=== PATIENT | female | born 1940 | race Caucasian/White ===

== ENCOUNTER 2018-07-13 09:43 | Inpatient (IN) | payer MEDICARE ==
[2018-07-13] MEDS ORDERED: SODIUM CHLORIDE 0.9% 1,000 ML IV STA (09:57)
--- NOTE | 2018-07-13 10:00 | ED ---
General Adult HPI - General Chief complaint: Nausea/Vomiting/Diarrhea Stated complaint: Body aches all over Time Seen by Provider: 07/13/18 09:50 Source: patient, RN notes reviewed Mode of arrival: ambulatory Limitations: no limitations - History of Present Illness Initial comments: 78-year-old female presents to the emergency department with a chief complaint of abdominal pain. She states she's had this pain since Friday. She states that her abdomen just feels very distended. She states if she eats she tends to have increased pain. She states that she had her typical bowel movement yesterday but she feels like she could go again. She denies any changes in urination but states she has not been drinking enough water. She denies any fever chills. She denies any vomiting. She states mostly her pain is in the upper abdomen. She denies any chest pain and shortness of breath. She states that she is feeling just weak in general. She was concerned due to the continued pain so she thought that she should be seen. Patient denies any recent fever, chills, shortness of breath, chest pain, back pain, nausea vomiting, numbness or tingling, dysuria or hematuria, diarrhea, headaches or visual changes, or any other current symptoms. - Related Data Home Medications Medication Instructions Recorded Confirmed Alendronate Sodium 70 mg PO WE 07/13/18 07/13/18 Artificial Tears-Hypromellose 1 - 2 drops BOTH EYES QID PRN 07/13/18 07/13/18 [Artificial Tear Drops] Atenolol [Tenormin] 50 mg PO HS 07/13/18 07/13/18 Bifidobacterium Infantis [Align] 4 mg PO DAILY 07/13/18 07/13/18 Cromolyn Sodium 1 drops BOTH EYES Q48H 07/13/18 07/13/18 Cyclobenzaprine [Flexeril] 10 mg PO DAILY PRN 07/13/18 07/13/18 Fish Oil/Dha/Epa [Fish Oil 1,200 1 cap PO DAILY 07/13/18 07/13/18 mg Fish Oil] Glucosamine Sulfate 500 mg PO DAILY 07/13/18 07/13/18 Olopatadine HCl [Patanol] 1 - 2 drops BOTH EYES Q48H 07/13/18 07/13/18 Triamcinolone Acetonide [Nasacort] 1 spray EA NOSTRIL DAILY 07/13/18 07/13/18 Vitamin B Complex 1 cap PO DAILY 07/13/18 07/13/18 Allergies Allergy/AdvReac Type Severity Reaction Status Date / Time latex Allergy Rash/Hives Verified 07/13/18 14:18 Review of Systems ROS Statement: Those systems with pertinent positive or pertinent negative responses have been documented in the HPI. ROS Other: All systems not noted in ROS Statement are negative. Past Medical History Additional Past Medical History / Comment(s): Lymphocytic Colitis History of Any Multi-Drug Resistant Organisms: None Reported Past Surgical History: Appendectomy, Joint Replacement, Orthopedic Surgery, Tonsillectomy Additional Past Surgical History / Comment(s): Face Lift, Caratact surgery Past Psychological History: No Psychological Hx Reported Smoking Status: Former smoker Past Alcohol Use History: Daily Past Drug Use History: None Reported General Exam - General Exam Comments Initial Comments: General: The patient is awake and alert, in no distress, and does not appear acutely ill. Eye: Pupils are equal, round and reactive to light, extra-ocular movements are intact; there is normal conjunctiva bilaterally. No signs of icterus. Ears, nose, mouth and throat: There are moist mucous membranes. Neck: The neck is supple, there is no tenderness. Cardiovascular: There is a regular rate and rhythm. No murmur, rub or gallop is appreciated. Respiratory: Lungs are clear to auscultation, respirations are non-labored, breath sounds are equal. No wheezes, stridor, rales, or rhonchi. Gastrointestinal: Soft, distended, mild tenderness along the right upper and left upper quadrants of the abdomen without masses or organomegaly noted. There is no rebound or guarding present. No CVA tenderness. Bowel sounds are unremarkable. Back: There is no tenderness to palpation in the midline. There is no obvious deformity. No rashes noted. Musculoskeletal: Normal ROM, no tenderness, There is no pedal edema. There is no calf tenderness or swelling. Sensation intact. Pulses equal bilaterally 2+. Neurological: CN II-XII intact, There are no obvious motor or sensory deficits. Coordination appears grossly intact. Speech is normal. Skin: Skin is warm and dry and no rashes or lesions are noted. Psychiatric: Cooperative, appropriate mood & affect, normal judgment. Limitations: no limitations Course Vital Signs 07/13/18 07/13/18 07/13/18 09:44 12:49 14:00 Temperature 98.1 F 98.7 F Pulse Rate 71 84 75 Respiratory 18 28 H 18 Rate Blood Pressure 115/70 185/88 O2 Sat by Pulse 98 94 L 96 Oximetry 07/13/18 15:00 Temperature 97.9 F Pulse Rate 78 Respiratory 18 Rate Blood Pressure 128/74 O2 Sat by Pulse 97 Oximetry - Reevaluation(s) Reevaluation #1: 07/13/18 when patient was reevaluated for computed tomography scan results she was found to be the Neck and hypoxic. She was placed on 2 L and a chest x-ray and cardiac enzymes were added. At that time there is concern for possible acute CHF. Possible etiology due to fluid overload versus cardiac component. Cardiology will be consulted. EKG Findings - EKG Comments: EKG Findings:: normal sinus rhythm 80 bpm, normal axis, no atopy, no S-T depressions or elevations, Medical Decision Making - Medical Decision Making 78-year-old female presents for abdominal pain and distention. This time lab work was reviewed that does show what appears to be a UTI with CAT scan confirming acute pyelonephritis. Patient did develop shortness of breath while in the emergency department after receiving fluids and was found to have elevated BMP as well possible acute CHF on x-ray. At this time we'll admit the patient. We will continue nitro paste and a low-dose of Lasix we will consult cardiology per Dr. Bennett's request. We will continue antibiotics. Acute pyelonephritis. The patient is comfortable in the room at this time with nasal cannula oxygen. All questions have been answered. - Lab Data Result diagrams: 07/13/18 10:15 07/13/18 10:15 Lab Results 07/13/18 07/13/18 07/13/18 Range/Units 10:15 10:15 10:15 WBC 8.6 (3.8-10.6) k/uL RBC 4.68 (3.80-5.40) m/uL Hgb 15.5 (11.4-16.0) gm/dL Hct 46.9 H (34.0-46.0) % MCV 100.4 H (80.0-100.0) fL MCH 33.1 (25.0-35.0) pg MCHC 32.9 (31.0-37.0) g/dL RDW 12.8 (11.5-15.5) % Plt Count 225 (150-450) k/uL Neutrophils % 88 % Lymphocytes % 5 % Monocytes % 5 % Eosinophils % 1 % Basophils % 0 % Neutrophils # 7.6 (1.3-7.7) k/uL Lymphocytes # 0.5 L (1.0-4.8) k/uL Monocytes # 0.4 (0-1.0) k/uL Eosinophils # 0.1 (0-0.7) k/uL Basophils # 0.0 (0-0.2) k/uL Sodium 133 L (137-145) mmol/L Potassium 4.4 (3.5-5.1) mmol/L Chloride 97 L (98-107) mmol/L Carbon Dioxide 26 (22-30) mmol/L Anion Gap 10 mmol/L BUN 20 H (7-17) mg/dL Creatinine 0.93 (0.52-1.04) mg/dL Est GFR (CKD-EPI)AfAm 68 (>60 ml/min/1.73 sqM) Est GFR (CKD-EPI)NonAf 59 (>60 ml/min/1.73 sqM) Glucose 106 H (74-99) mg/dL Plasma Lactic Acid Nasim (0.7-2.0) mmol/L Calcium 9.0 (8.4-10.2) mg/dL Total Bilirubin 1.1 (0.2-1.3) mg/dL AST 25 (14-36) U/L ALT 27 (9-52) U/L Alkaline Phosphatase 72 (38-126) U/L Total Creatine Kinase (30-135) U/L CK-MB (CK-2) (0.0-2.4) ng/mL CK-MB (CK-2) Rel Index Troponin I (0.000-0.034) ng/mL NT-Pro-B Natriuret Pep pg/mL Total Protein 6.4 (6.3-8.2) g/dL Albumin 3.5 (3.5-5.0) g/dL Amylase 61 (30-110) U/L Lipase 40 (23-300) U/L Urine Color Yellow Urine Appearance Cloudy H (Clear) Urine pH 6.0 (5.0-8.0) Ur Specific [place] 1.013 (1.001-1.035) Urine Protein 1+ H (Negative) Urine Glucose (UA) Negative (Negative) Urine Ketones 2+ H (Negative) Urine Blood Trace H (Negative) Urine Nitrite Positive H (Negative) Urine Bilirubin Negative (Negative) Urine Urobilinogen <2.0 (<2.0) mg/dL Ur Leukocyte Esterase Large H (Negative) Urine RBC 3 (0-5) /hpf Urine WBC 126 H (0-5) /hpf Urine WBC Clumps Few H (None) /hpf Ur Squamous Epith Cells 2 (0-4) /hpf Urine Bacteria Many H (None) /hpf Urine Mucus Rare H (None) /hpf Urine Yeast (Budding) Occasional H (None) /hpf 07/13/18 07/13/18 07/13/18 Range/Units 10:15 10:15 10:15 WBC (3.8-10.6) k/uL RBC (3.80-5.40) m/uL Hgb (11.4-16.0) gm/dL Hct (34.0-46.0) % MCV (80.0-100.0) fL MCH (25.0-35.0) pg MCHC (31.0-37.0) g/dL RDW (11.5-15.5) % Plt Count (150-450) k/uL Neutrophils % % Lymphocytes % % Monocytes % % Eosinophils % % Basophils % % Neutrophils # (1.3-7.7) k/uL Lymphocytes # (1.0-4.8) k/uL Monocytes # (0-1.0) k/uL Eosinophils # (0-0.7) k/uL Basophils # (0-0.2) k/uL Sodium (137-145) mmol/L Potassium (3.5-5.1) mmol/L Chloride (98-107) mmol/L Carbon Dioxide (22-30) mmol/L Anion Gap mmol/L BUN (7-17) mg/dL Creatinine (0.52-1.04) mg/dL Est GFR (CKD-EPI)AfAm (>60 ml/min/1.73 sqM) Est GFR (CKD-EPI)NonAf (>60 ml/min/1.73 sqM) Glucose (74-99) mg/dL Plasma Lactic Acid Nasim 1.2 (0.7-2.0) mmol/L Calcium (8.4-10.2) mg/dL Total Bilirubin (0.2-1.3) mg/dL AST (14-36) U/L ALT (9-52) U/L Alkaline Phosphatase (38-126) U/L Total Creatine Kinase 34 (30-135) U/L CK-MB (CK-2) 0.4 (0.0-2.4) ng/mL CK-MB (CK-2) Rel Index 1.2 Troponin I <0.012 (0.000-0.034) ng/mL NT-Pro-B Natriuret Pep 1830 pg/mL Total Protein (6.3-8.2) g/dL Albumin (3.5-5.0) g/dL Amylase (30-110) U/L Lipase (23-300) U/L Urine Color Urine Appearance (Clear) Urine pH (5.0-8.0) Ur Specific [place] (1.001-1.035) Urine Protein (Negative) Urine Glucose (UA) (Negative) Urine Ketones (Negative) Urine Blood (Negative) Urine Nitrite (Negative) Urine Bilirubin (Negative) Urine Urobilinogen (<2.0) mg/dL Ur Leukocyte Esterase (Negative) Urine RBC (0-5) /hpf Urine WBC (0-5) /hpf Urine WBC Clumps (None) /hpf Ur Squamous Epith Cells (0-4) /hpf Urine Bacteria (None) /hpf Urine Mucus (None) /hpf Urine Yeast (Budding) (None) /hpf - Radiology Data Radiology results: report reviewed, image reviewed Disposition Clinical Impression: Acute pyelonephritis, CHF (congestive heart failure) Disposition: ADMITTED IP TO THIS [facility] Condition: Stable Decision Date: 07/13/18 Decision Time: 15:17
[2018-07-13 10:35] LABS: Basophils % (A) 0 %; Eosinophils # (A) 0.1 k/uL (0-0.7); Eosinophils % (A) 1 %; HCT 46.9 % (34.0-46.0); HGB 15.5 gm/dL (11.4-16.0); Lymphocytes # (A) 0.5 k/uL (1.0-4.8); Lymphocytes % (A) 5 %; MCH 33.1 pg (25.0-35.0); MCHC 32.9 g/dL (31.0-37.0); MCV 100.4 fL (80.0-100.0); Mean Platelet Volume 6.8; Monocytes # (A) 0.4 k/uL (0-1.0); Monocytes % (A) 5 %; Neutrophils # (A) 7.6 k/uL (1.3-7.7); Neutrophils % (A) 88 %; Platelet Count 225 k/uL (150-450); RBC 4.68 m/uL (3.80-5.40); RDW 12.8 % (11.5-15.5); WBC 8.6 k/uL (3.8-10.6)
[2018-07-13 10:47] LABS: Albumin 3.5 g/dL (3.5-5.0); Potassium 4.4 mmol/L (3.5-5.1); Total Bilirubin 1.1 mg/dL (0.2-1.3); Total Protein 6.4 g/dL (6.3-8.2)
[2018-07-13 10:51] LABS: Appearance,Urine Cloudy (Clear); Bacteria,Urine Many /hpf; Bilirubin,Urine Negative (Negative); Blood,Urine Trace (Negative); Budding Yeast,Urine Occasional /hpf; Color,Urine Yellow; Glucose,Urine (UA) Negative (Negative); Ketones,Urine 2+ (Negative); Leukocyte Esterase,Urine Large (Negative); Mucus,Urine Rare /hpf; Nitrite,Urine Positive (Negative); Protein,Urine 1+ (Negative); RBC,Urine 3 /hpf (0-5); Specific Gravity,Urine 1.013 (1.001-1.035); Squamous Epithelial Cell,Urine 2 /hpf (0-4); Urobilinogen,Urine <2.0 mg/dL (<2.0); WBC,Urine 126 /hpf (0-5)
[2018-07-13] MEDS ORDERED: cefTRIAXone IN SWFI 1,000 MG/10 ML SYRINGE IVP STA (11:09)
--- NOTE | 2018-07-13 12:13 | CT ---
EXAMINATION TYPE: CT abdomen pelvis w con DATE OF EXAM: 07/13/2018 COMPARISON: NONE HISTORY: 78-year-old female Pelvic pain with nausea TECHNIQUE: Contiguous axial scanning of the abdomen and pelvis following administration of 100 ml Iso eddi 300 IV contrast. Delayed images through the kidneys and coronal/sagittal reconstructions perform ed. CT DLP: 435.4 mGycm Automated exposure control for dose reduction was used. FINDINGS: Heart normal size without pericardial effusion. Pleural parenchymal scarring at the peripheral left b ase. Ectatic lower descending thoracic aorta 2.8 cm. Some focal fat along the anterior falciform ligament. Liver enlarged measuring 21.4 cm. Otherwise, no focal liver lesion. No biliary ductal dilatation. Portal venous system is patent. Right adrenal gland, gallbladder, and pancreas show no gross abnormality. On the left, there is a punctate nonobstructive 2 mm calculus as well as a 1.8 cm lateral cyst. Multiple calcified granulomas in the spleen. 1.4 cm nodularity left adrenal gland, nonspecific, statistically represents a benign adrenal adenoma. Nonobstructive 4 mm right lower pole renal calculus. Some vascular calcifications at the right renal hilum, and a subcentimeter hypodensity medial upper pole too small for accurate CT characterization, likely cyst. However, there is urothelial thickening along the right renal collecting system, asymmetric right-mary ed perinephric fat stranding, and striated nephrograms throughout the right kidney. No dilated small bowel, free fluid, or free air. No mesenteric or retroperitoneal lymphadenopathy. Sigmoid diverticulosis without pericolonic inflammatory change. Mild circumferential bladder wall thickening. Uterus and ovaries are visualized. Multiple pelvic phle boliths. No abnormal fluid collection in the pelvis or pelvic lymphadenopathy. Bones: Advanced degenerative changes throughout the patient's visualized spine. IMPRESSION: 1. CT FINDINGS HIGHLY SUGGESTIVE OF RIGHT-SIDED PYELONEPHRITIS. 2. NONOBSTRUCTIVE RENAL CALCULUS ON EITHER SIDE MEASURING UP TO 4 MM. 3. SIGMOID DIVERTICULOSIS AND HEPATOMEGALY (21.4 CM). 4. ADVANCED DEGENERATIVE CHANGES THROUGHOUT THE VISUALIZED SPINE.
[2018-07-13] MEDS ORDERED: cefTRIAXone 2,000 MG in SODIUM CHLORIDE 0.9% 100 ML IVPB STA (12:23)
[2018-07-13] MEDS ORDERED: cefTRIAXone IN SWFI 2,000 MG/20 ML SYRINGE IVP STA (12:26)
--- NOTE | 2018-07-13 13:26 | XR ---
EXAMINATION TYPE: XR chest 2V DATE OF EXAM: 07/13/2018 COMPARISON: NONE HISTORY: Cough TECHNIQUE: Frontal and lateral views of the chest are obtained. FINDINGS: Heart size is normal. There is pulmonary interstitial edema. This lump blunting of costoph renic angles. Bony thorax is intact. Thoracic aorta is atheromatous. IMPRESSION: Pulmonary interstitial edema could relate to acute heart failure.
[2018-07-13] MEDS ORDERED: FUROSEMIDE 10 MG/ML 4 ML VIAL IV STA (13:36)
[2018-07-13 14:22] LABS: Creatine Kinase 34 U/L (30-135)
[2018-07-13 14:35] LABS: Creatine Kinase MB 0.4 ng/mL (0.0-2.4); Troponin I <0.012 ng/mL (0.000-0.034)
[2018-07-13] MEDS ORDERED: NITROGLYCERIN OINT 1 INCH/GM PACKET TOPICAL STA (14:56)
[2018-07-13] MEDS ORDERED: ASPIRIN 325 MG TAB PO STA (15:19)
[2018-07-13] MEDS ORDERED: CYCLOBENZAPRINE 10 MG TAB PO PRN (15:21)
[2018-07-13] MEDS ORDERED: ARTIFICIAL TEARS-HYPROMELLOSE DROPS 15 ML BTL BOTH EYES PRN (15:21)
[2018-07-13] MEDS ORDERED: CROMOLYN SODIUM BOTH EYES SCH (15:30)
[2018-07-13 17:50] VITALS: BMI 26.4
[2018-07-13] MEDS: SODIUM CHLORIDE 0.9% 1,000 ML IV SCH (17:57)
[2018-07-13] MEDS: NITROGLYCERIN OINT 1 INCH/GM PACKET TOPICAL SCH ×2 (17:58→20:33)
[2018-07-13] MEDS: ATENOLOL 50 MG TAB PO SCH (20:34)
[2018-07-13 22:36] LABS: Creatine Kinase MB 0.7 ng/mL (0.0-2.4); Troponin I 0.017 ng/mL (0.000-0.034)
[2018-07-14 06:25] LABS: Creatine Kinase MB 0.8 ng/mL (0.0-2.4); Troponin I 0.014 ng/mL (0.000-0.034)
[2018-07-14] MEDS: FUROSEMIDE 10 MG/ML 4 ML VIAL IV SCH ×2 (06:36→18:57)
[2018-07-14] MEDS: NITROGLYCERIN OINT 1 INCH/GM PACKET TOPICAL SCH ×4 (08:54→20:09)
[2018-07-14] MEDS: FLUTICASONE 50MCG/SPRAY NASAL 16GM EA NOSTRIL SCH (08:54)
[2018-07-14] MEDS: ASPIRIN 325 MG TAB PO SCH (08:54)
[2018-07-14] MEDS: LACTOBACILLUS ACIDOPH & BULGAR 1 EACH PACKET PO SCH (08:55)
[2018-07-14] MEDS ORDERED: KETOTIFEN 0.025% OPHTH DROPS 5 ML BTL BOTH EYES SCH (09:00)
[2018-07-14] MEDS ORDERED: NON-FORMULARY DRUG (Vitamin B Complex [Vitamin B Complex] 1 CAP) PO SCH (09:00)
[2018-07-14] MEDS ORDERED: NON-FORMULARY DRUG (Glucosamine Sulfate 500 MG) PO SCH (09:00)
[2018-07-14] MEDS ORDERED: NON-FORMULARY DRUG (Fish Oil/Dha/Epa [Fish Oil 1,200 Mg Fish Oil] 1 CAP) PO SCH (09:00)
--- NOTE | 2018-07-14 11:47 | ECHOF ---
Referral Reason:CHF MEASUREMENTS -------- HEIGHT: 154.9 cm WEIGHT: 63.0 kg BP: 130/51 RVIDd: 2.7 cm (< 3.3) IVSd: 0.9 cm (0.6 - 1.1) LVIDd: 3.8 cm (3.9 - 5.3) LVPWd: 1.0 cm (0.6 - 1.1) IVSs: 1.2 cm LVIDs: 2.8 cm LVPWs: 1.2 cm LA Diam: 3.1 cm (2.7 - 3.8) LAESV Index (A-L): 33.82 ml/m Ao Diam: 2.9 cm (2.0 - 3.7) AV Cusp: 1.9 cm (1.5 - 2.6) MV EXCURSION: 15.792 mm (> 18.000) MV EF SLOPE: 93 mm/s (70 - 150) EPSS: 0.3 cm MV E Bull: 0.91 m/s MV DecT: 180 ms MV A Bull: 0.57 m/s MV E/A Ratio: 1.59 AR PHT: 3782 ms RAP: 5.00 mmHg RVSP: 27.35 mmHg FINDINGS -------- Resting bradycardia (HR<60bpm). This was a technically good study. The left ventricular size is normal. Left ventricular wall thickness is normal. Overall left vent ricular systolic function is low-normal with, an EF between 50 - 55 %. The right ventricle is normal in size. LA is moderately dilated 34-39 ml/m2 The right atrium is normal in size. There is mild aortic valve sclerosis. Trace to mild aortic regurgitation. The mitral valve leaflets are mildly thickened. Mild mitral annular calcification present. There is trace mitral regurgitation. Mild tricuspid regurgitation present. There is mild pulmonary hypertension. The right ventricular systolic pressure, as measured by Doppler, is 27.35mmHg. The pulmonic valve was not well visualized. The aortic root size is normal. Normal inferior vena cava with normal inspiratory collapse consistent with estimated right atrial pre ssure of 5 mmHg. There is no pericardial effusion. CONCLUSIONS -------- 1. Resting bradycardia (HR<60bpm). 2. This was a technically good study. 3. The left ventricular size is normal. 4. Left ventricular wall thickness is normal. 5. Overall left ventricular systolic function is low-normal with, an EF between 50 - 55 %. 6. The right ventricle is normal in size. 7. LA is moderately dilated 34-39 ml/m2 8. The right atrium is normal in size. 9. There is mild aortic valve sclerosis. 10. Trace to mild aortic regurgitation. 11. The mitral valve leaflets are mildly thickened. 12. Mild mitral annular calcification present. 13. There is trace mitral regurgitation. 14. Mild tricuspid regurgitation present. 15. There is mild pulmonary hypertension. 16. The right ventricular systolic pressure, as measured by Doppler, is 27.35mmHg. 17. The pulmonic valve was not well visualized. 18. The aortic root size is normal. 19. Normal inferior vena cava with normal inspiratory collapse consistent with estimated right atrial pressure of 5 mmHg. 20. There is no pericardial effusion. ELECTRICAL TECH/PROJECT MANAGER: Tanika Zuniga RDCS
[2018-07-14] MEDS ORDERED: cefTRIAXone IN SWFI 1,000 MG/10 ML SYRINGE IVP SCH (13:00)
[2018-07-14] MEDS: SODIUM CHLORIDE 0.9% 1,000 ML IV SCH (16:44)
--- NOTE | 2018-07-14 18:39 | HP ---
HISTORY AND PHYSICAL CHIEF COMPLAINT: Abdominal pain and bloating. HISTORY OF PRESENT ILLNESS: This lady presented to the emergency room with a complaint of abdominal pain and bloating. She was diagnosed as having urinary tract infection and possible pyelonephritis. Apparently an x-ray did suggest that she had CHF and her chest x-ray is suggestive of the same. She has had no chest pain, history of heart disease, orthopnea, PND, fever, chills, cough, hemoptysis, etc. She has otherwise been fairly healthy. At home, she has been on: 1. Fosamax 70 mg once a week. 2. Atenolol 50 mg at bedtime. 3. Cromolyn sodium drops in both eyes. 4. Flexeril 10. 5. Patanol drops. 6. Nasacort. She had no angina, diabetes, etc. REVIEW OF SYSTEMS: She has had no neurologic problems, hemoptysis, hypertension, palpitations, orthopnea, PND, syncope, abdominal pain, nausea, vomiting, hematemesis, melena, hematochezia, jaundice, hepatitis, cirrhosis, hematuria, renal failure, diabetes, etc. PAST MEDICAL HISTORY: She is ALLERGIC TO LATEX. Medications have already been mentioned. FAMILY HISTORY, PERSONAL AND SOCIAL HISTORY: Noncontributory and she does not smoke. Surgically, she has had cataracts and a procedure on her right knee. LABORATORY STUDIES: Demonstrated normal CBC and electrolytes. Blood sugar was 106. Urine was positive for bacteria and white cells. BNP was 1830. Troponin was normal. PHYSICAL EXAMINATION: Blood pressure 130/72 with a pulse of 57, respirations 18 and she is afebrile. In general, she appeared to be well-developed, well-nourished, no acute distress. Skin color is normal. Skin is warm and dry. Lymph nodes are not enlarged. Head, ears, eyes, nose, mouth, and throat were normal. Neck veins were not distended. Thyroid is not enlarged. Chest is clear. Cardiac demonstrates normal sinus rhythm with no murmurs or extra sounds. The abdomen is soft and nontender and there is no visceromegaly or mass. Bowel sounds are present. Extremities are normal and neurologically, she is intact. She is admitted to the hospital with diagnoses: 1. Urinary tract infection. 2. Possible congestive heart failure. PLAN: 1. Bed rest. 2. IV fluids. 3. IV antibiotics. 4. Echocardiogram. MMODL / IJN: [id number] /
--- NOTE | 2018-07-14 18:39 | PN ---
PROGRESS NOTE DATE OF SERVICE: 07/14/2018 CHIEF COMPLAINT: Urinary tract infection and possible CHF. HISTORY OF PRESENT ILLNESS: This lady is feeling well. She has had no chest pain, shortness of breath, etc. She has had no fever or chills. PHYSICAL EXAMINATION: HEENT is normal. Chest is clear. Cardiac exam is normal. Abdomen is soft, nontender. IMPRESSION: 1. Urinary tract infection. 2. ? Congestive heart failure. PLAN: 1. Echocardiogram. 2. Continue antibiotics. MMODL / IJN: [id number] /
[2018-07-14] MEDS ORDERED: IBUPROFEN 400 MG TAB PO PRN (19:24)
[2018-07-14] MEDS: IOPAMIDOL-300 CONTRAST 30 ML VIAL (ORAL USE) PO PRN ×2 (20:15→21:16)
[2018-07-14] MEDS ORDERED: MELATONIN 5 MG TABLET PO SCH (21:00)
[2018-07-14 21:04] LABS: Potassium 3.5 mmol/L (3.5-5.1)
[2018-07-14] MEDS: ATENOLOL 50 MG TAB PO SCH (22:13)
--- NOTE | 2018-07-14 22:26 | CT ---
EXAMINATION TYPE: CT abdomen pelvis w con DATE OF EXAM: 07/14/2018 COMPARISON: Yesterday HISTORY: Abdominal pain and distention CT DLP: 592.2 mGycm Automated exposure control for dose reduction was used. TECHNIQUE: Helical acquisition of images was performed from the lung bases through the pelvis. CONTRAST: Performed with Oral Contrast and with IV Contrast, patient injected with 100 mL of Isovue 300. FINDINGS: There is some mild linear density at the posterior lung bases consistent with scarring and subsegment al atelectasis. Heart size is normal. There are multiple calcified splenic granulomata. There is no d iscrete liver mass. Bile ducts are not dilated. Gallbladder appears normal. There is no evidence of a pancreatic mass. There are pancreatic calcifications consistent with old inflammatory disease. There is 5 mm calculus in the anterior left kidney. There is 5 mm calculus lower pole right kidney. There is no adrenal mass. There are small renal cortical cysts that measure up to 2 cm. There is no hydrone phrosis. There is slight decreased cortical contrast opacification of the right kidney compared to th e left. There is no retroperitoneal adenopathy. There are numerous diverticula in the sigmoid colon. Bladder distends smoothly. There is no intestinal wall thickening. There are no dilated loops. Append ix is not seen. There is no sign of appendicitis. There are spondylotic changes in the lumbar spine w ith disc space narrowing and vacuum disc. There is no compression fracture. There is no evidence of pneumoperitoneum. There is no ascites. IMPRESSION: THERE IS DECREASED CORTICAL ENHANCEMENT OF THE RIGHT KIDNEY COMPARED TO THE LEFT AND COULD RELATE TO DIFFUSE PYELONEPHRITIS SIMILAR TO EXAM YESTERDAY. RENAL ISCHEMIA IS ALSO POSSIBLE. THERE ARE MULTIPLE NONOBSTRUCTING RENAL CALCULI. ATHEROSCLEROTIC VASCULAR DISEASE. EXTENSIVE SIGMOID DIVERTICULOSIS WIT HOUT DIVERTICULITIS. THERE IS OVERALL NO SIGNIFICANT CHANGE COMPARED TO YESTERDAY. Fibrotic changes at the lung bases unchanged from yesterday.
[2018-07-15] MEDS: FUROSEMIDE 10 MG/ML 4 ML VIAL IV SCH (06:06)
[2018-07-15] MEDS: ASPIRIN 325 MG TAB PO SCH (08:23)
[2018-07-15] MEDS: FLUTICASONE 50MCG/SPRAY NASAL 16GM EA NOSTRIL SCH (08:24)
[2018-07-15] MEDS: NITROGLYCERIN OINT 1 INCH/GM PACKET TOPICAL SCH (08:30)
[2018-07-15] MEDS: LACTOBACILLUS ACIDOPH & BULGAR 1 EACH PACKET PO SCH (08:30)
[2018-07-15 08:41] VITALS: BP 128/74; PULSE 56; RESP 18; TEMP 98
--- NOTE | 2018-07-15 15:15 | CDI ---
Last Revision, October 2017 Documentation Clarification Form Date: 07/15/2018 3:05:00 PM From: Belle LealNorthANDREA, CCDS Admit Date: 07/13/2018 3:46:00 PM Patient Name: Jackie Brandt Visit Number: [id number] Discharge Date: 07/15/2018 ATTENTION: The Clinical Documentation Specialists (CDI) and [facility] Coding Staff appreciate your assistance in clarifying documentation. Please respond to the clarification below the line at the bottom and electronically sign. The CDI & [facility] Coding staff will review the response and follow-up if needed. Please note: Queries are made part of the Legal Health Record. If you have any questions, please contact the author of this message via ITS. Gera Williamson MD: Per the H/P & progress notes, the patient is diagnosed with possible CHF, nos. History/Risk Factors: Former smoker. Clinical Indicators: Presented with nausea, vomiting, diarrhea, body aches & abdominal pain. Diagnosed with pyelonephritis. VS: P 71-84, R 18-28^, BP 115/70-185/88^, PO 98 ra - 94 2Lnc BNP: 1830 Echocardiogram Results: EF 50-55%, systolic low normal. Mild aortic valve sclerosis, Trace-mild AR, Trace MR, Mild TR, mild pulm hypertension. Chest X Ray: Pulmonary interstitial edema could relate to acute heart failure. Treatment: IV fluid bolus, IV Rocephin, IV Lasix, Nitropaste, telemetry. In your professional opinion, can you please clarify the acuity and type of CHF if known? Systolic Heart Failure: o Acute o Chronic o Acute on Chronic Diastolic Heart Failure: o Acute o Chronic o Acute on Chronic Systolic & Diastolic Heart Failure: o Acute o Chronic o Acute on Chronic Heart Failure Unable to Determine Other, please specify MTDD
[2018-07-15] MEDS ORDERED: NON-FORMULARY DRUG (Alendronate Sodium [Alendronate Sodium] 70 MG) PO SCH (15:21)
[2018-07-15] MEDS ORDERED: AMOXICILLIN 250 MG CAP PO SCH (16:00)
--- NOTE | 2018-07-15 17:41 | DS ---
DISCHARGE SUMMARY CHIEF COMPLAINT: Urinary tract infection and possible CHF. HISTORY OF PRESENT ILLNESS AND PHYSICAL EXAM: The details of this lady's history and physical can be found in the initial workup. LABORATORY STUDIES: While she was in a hospital she had laboratory studies, details which can be found in the laboratory section of her chart. COURSE IN HOSPITAL: After admission she was placed in bedrest, started on intravenous fluids and placed on antibiotics. She had no other problems. Studies were unremarkable. She is doing well. It is felt that she will be discharged on the and she will go home on Amoxil 250 t.i.d. for the urinary tract infection and a low dose of Lasix. She will follow up in a few days. FINAL DIAGNOSES: 1. Possible congestive heart failure. 2. Urinary tract infection. OPERATIONS: None. CONSULTATION: None. She is improved. YOLANDA / ALL: [id number] /
[2018-07-16] MEDS ORDERED: FUROSEMIDE 20 MG TAB PO SCH (09:00)
--- NOTE | 2018-07-22 07:44 | CDI ---
Last Revision, October 2017 Documentation Clarification Form Date: 07/15/2018 3:05:00 PM From: Belle LealNorthANDREA reyes, CCDS Admit Date: 07/13/2018 3:46:00 PM Patient Name: Jackie Brandt Visit Number: [id number] Discharge Date: 07/15/2018 ATTENTION: The Clinical Documentation Specialists (CDI) and [facility] Coding Staff appreciate your assistance in clarifying documentation. Please respond to the clarification below the line at the bottom and electronically sign. The CDI & [facility] Coding staff will review the response and follow-up if needed. Please note: Queries are made part of the Legal Health Record. If you have any questions, please contact the author of this message via ITS. Gera Williamson MD: Per the H/P & progress notes, the patient is diagnosed with possible CHF, nos. History/Risk Factors: Former smoker. Clinical Indicators: Presented with nausea, vomiting, diarrhea, body aches & abdominal pain. Diagnosed with pyelonephritis. Per the Discharge Summary: UTI & possible CHF. VS: P 71-84, R 18-28^, BP 115/70-185/88^, PO 98 ra - 94 2Lnc BNP: 1830 Echocardiogram Results: EF 50-55%, systolic low normal. Mild aortic valve sclerosis, Trace-mild AR, Trace MR, Mild TR, mild pulm hypertension. Chest X Ray: Pulmonary interstitial edema could relate to acute heart failure. Treatment: IV fluid bolus, IV Rocephin, IV Lasix, Nitropaste, telemetry. In your professional opinion, can you please clarify the acuity and type of CHF if known? Systolic Heart Failure: o Acute o Chronic o Acute on Chronic Diastolic Heart Failure: o Acute o Chronic o Acute on Chronic Systolic & Diastolic Heart Failure: o Acute o Chronic o Acute on Chronic Heart Failure Unable to Determine Other, please specify MTDD
--- NOTE | 2018-07-27 20:57 | MISC ---
MISCELLANOUS REPORT QUERY: Under congestive heart failure: Unable to determine. MMERIBERTO / IJN: [id number] /
== END 2018-07-15 14:27 | disposition home or self-care (01) | DRG 690 ==
LOC: EC 09:43 → 6SEL 15:46
PROVIDERS: ADMIT Family Medicine; ATTEND Family Medicine
DX: N10 Acute pyelonephritis (principal); Z79.83 Long term (current) use of bisphosphonates; Z87.891 Personal history of nicotine dependence; Z91.040 Latex allergy status; I50.9 Heart failure, unspecified; Z79.899 Other long term (current) drug therapy; Z96.60 Presence of unspecified orthopedic joint implant; Z98.49 Cataract extraction status, unspecified eye
CPT/HCPCS: 36415; 71046; 74177; 80048; 80053; 81001; 82150; 82550; 82553; 83605; 83690; 83880; 84484; 85025; 86304; 87040; 87077; 87086; 87186; 93005; 93306; 96361; 96374; 96375; 99285